=== PATIENT | female | born 1950 | race Caucasian/White ===

== ENCOUNTER 2019-05-28 18:15 | Emergency (ER) | payer MEDICARE, BC ==
[2019-05-28 18:52] VITALS: BP 141/69
--- NOTE | 2019-05-28 19:09 | UC ---
Skin Complaint HPI - HPI Summary HPI Summary: 69 year old female presents with complaint of left arm rash for the past 3 days. - History of Current Complaint Chief Complaint: UCSkin Time Seen by Provider: 05/28/19 18:40 Stated Complaint: RASH LEFT ARM/HAND Hx Obtained From: Patient Onset/Duration: Sudden Onset, Lasting Days - 3 days Pain Intensity: 5 Location: Discrete - left arm Aggravating Factor(s): Nothing Alleviating Factor(s): Nothing Associated Signs & Symptoms: Negative: Nausea, Vomiting, Numbness, Weakness, Difficulty Breathing, Fever, Cough, Chest Pain, Abdominal Pain - Allergy/Home Medications Allergies/Adverse Reactions: Allergies Allergy/AdvReac Type Severity Reaction Status Date / Time erythromycin base Allergy Mild Stomach Verified 05/28/19 18:41 Cramps Home Medications: Home Medications Aspirin EC TAB* [Ecotrin EC Low Dose 81 MG*] 81 mg PO DAILY 05/28/19 [History Confirmed 05/28/19] Brimonidine Tartrate/Timolol [Combigan 0.2%-0.5% Eye Drops] 1 drop BID 05/28/19 [History Confirmed 05/28/19] Escitalopram * [Lexapro *] 40 mg PO DAILY 05/28/19 [History Confirmed 05/28/19] Lisinopril TAB* [Prinivil TAB 10 MG*] 10 mg PO DAILY 05/28/19 [History Confirmed 05/28/19] Simvastatin [Zocor 5 MG-] 1 tab DAILY 05/28/19 [History Confirmed 05/28/19] metFORMIN* [Glucophage 500 MG TAB *] 500 mg PO DAILY 05/28/19 [History Confirmed 05/28/19] PMH/Surg Hx/FS Hx/Imm Hx Previously Healthy: Yes Endocrine History: Diabetes Cardiovascular History: Hypertension - Surgical History Surgical History: Yes Surgery Procedure, Year, and Place: HYSTERECTOMY - Family History Known Family History: Positive: Non-Contributory - Social History Alcohol Use: Occasionally Substance Use Type: None Smoking Status (MU): Never Smoked Tobacco Review of Systems All Other Systems Reviewed And Are Negative: Yes Constitutional: Negative: Fever, Chills, Fatigue Skin: Positive: Rash. Negative: Bruising Eyes: Negative: Blurred Vision, Eye Redness, Photophobia ENT: Negative: Sore Throat, Ear Ache, Sinus Pain/Tenderness Respiratory: Negative: Shortness Of Breath, Cough Cardiovascular: Negative: Palpitations, Chest Pain Gastrointestinal: Negative: Abdominal Pain, Vomiting, Diarrhea, Nausea Genitourinary: Negative: Dysuria Motor: Negative: Decreased ROM, Weakness Neurovascular: Negative: Decreased Sensation Musculoskeletal: Positive: Other: - pain left forearm and hand.. Negative: Arthralgia, Decreased ROM Neurological: Positive: Paresthesia. Negative: Headache, Weakness Is Patient Immunocompromised?: No Physical Exam Triage Information Reviewed: Yes Appearance: Well-Appearing, No Pain Distress Vital Signs: Initial Vital Signs Temp 98.5 F 05/28/19 18:44 Pulse 66 05/28/19 18:44 Resp 16 05/28/19 18:44 BP 141/69 05/28/19 18:44 Pulse Ox 99 05/28/19 18:44 Vital Signs Reviewed: Yes Eyes: Positive: Conjunctiva Clear ENT: Positive: Normal ENT inspection Neck: Positive: Supple, Nontender, No Lymphadenopathy Respiratory: Positive: Chest non-tender, Lungs clear, Normal breath sounds Cardiovascular: Positive: RRR, No Murmur Abdomen Description: Positive: Nontender, Soft Musculoskeletal: Positive: Strength Intact, ROM Intact Neurological: Positive: Alert Psychological Exam: Normal Skin: Positive: Rashes - vessicular rahs pain along distribution of left C7 dermatome. Course/Dx - Course Course Of Treatment: Vessicular rash along distribution of left C7 dermatome. No evidence of bacterial superinfection. - Differential Diagnoses - Skin Complaint Differential Diagnoses: Contact Dermatitis - Diagnoses Provider Diagnosis: Varicella zoster Discharge - Sign-Out/Discharge Documenting (check all that apply): Patient Departure All imaging exams completed and their final reports reviewed: No Studies - Discharge Plan Condition: Stable Disposition: HOME Prescriptions: ValACYclovir (*) [Valtrex 1 GM(*)] 1 gm PO Q8H 7 Days #21 tab Patient Education Materials: Shingles (ED) Referrals: Tatum Aponte MD [Primary Care Provider] - Additional Instructions: Take medication as prescribed, Tylenol or ibupofen over the counter as needed for pain. Follow-up with your Primary Care Provider next week. - Billing Disposition and Condition Condition: STABLE Disposition: Home
== END 2019-05-28 19:22 | disposition home or self-care (01) ==
LOC: UCCORT 18:15
DX: B01.9 Varicella without complication (principal); B02.8 Zoster with other complications; Z79.84 Long term (current) use of oral hypoglycemic drugs; I10 Essential (primary) hypertension
CPT/HCPCS: 99202; G0463